=== PATIENT | male | born 1980 | race Caucasian/White ===

== ENCOUNTER 2019-08-01 02:55 | Emergency (ER) | payer MEDICAID, OTHER ==
[~2019-08-01] VITALS: Ht 177.8 cm; Wt 73.0 kg
[~2019-08-01 02:55] MED LIST: NON COMPLIANT
[2019-08-01] MEDS ORDERED: SODIUM CHLORIDE 0.9% 1,000 ML IV ONE (06:28)
[2019-08-01] MEDS ORDERED: MORPHINE SULFATE 4 MG/ML CPJ (NOT FOR IM USE) IV STA (06:28)
[2019-08-01] MEDS ORDERED: ONDANSETRON HCL 4MG/2ML INJ IV STA (06:28)
[2019-08-01 07:13] LABS: CHLORIDE 102 mEq/L (98-107)
[2019-08-01 07:26] LABS: BASOPHILS % 0.8 % (0.0-2.0); EOSINOPHILS % 0.6 % (0.0-5.0); HEMATOCRIT. 37.1 % (42.0-52.0); HEMOGLOBIN. 12.7 g/dL (14.0-18.0); MEAN CORPUSCULAR HEMOGLOBIN 31.5 pg (28.0-32.0); MEAN CORPUSCULAR VOLUME 91.8 fL (80.0-94.0); MEAN PLATELET VOLUME 8.8 fl (7.4-10.4); MONOCYTES % 5.6 % (2.0-8.0); PLATELET 200 x1000/uL (130-400); RED BLOOD CELL COUNT 4.04 mill/uL (4.7-6.1); RED CELL DISTRIBUTION WIDTH 15.8 % (11.6-14.6)
[2019-08-01 07:40] LABS: PROTHROMBIN TIME 10.4 sec (9.6-11.0)
[2019-08-01 08:20] VITALS: BP 125/79
== END 2019-08-01 08:40 | disposition home or self-care (01) ==
LOC: ER 02:55 → MERGE 02:55 → ER 08:40
DX: R10.13 Epigastric pain (principal); Z87.19 Personal history of other diseases of the digestive system; R03.0 Elevated blood-pressure reading, without diagnosis of hypertension
CPT/HCPCS: 36415; 74176; 80053; 83690; 85025; 85610; 96374; 96375; 99284; J2270; J2405; J7030; Z7610

== ENCOUNTER 2019-08-01 20:12 | Emergency (ER) | payer OTHER ==
[~2019-08-01] VITALS: Ht 177.8 cm; Wt 73.0 kg
[2019-08-01 21:22] LABS: BASOPHILS % 0.8 % (0.0-2.0); HEMATOCRIT. 39.4 % (42.0-52.0); HEMOGLOBIN. 13.5 g/dL (14.0-18.0); LYMPHOCYTES % 40.1 % (20.0-50.0); MEAN CORPUSCULAR HEMOGLOBIN 31.7 pg (28.0-32.0); MEAN CORPUSCULAR VOLUME 92.5 fL (80.0-94.0); MONOCYTES % 7.4 % (2.0-8.0); NEUTROPHILS % 50.7 % (40.0-76.0); PLATELET 163 x1000/uL (130-400); RED BLOOD CELL COUNT 4.26 mill/uL (4.7-6.1); RED CELL DISTRIBUTION WIDTH 16.2 % (11.6-14.6)
[2019-08-01 21:27] LABS: CHLORIDE 106 mEq/L (98-107)
[2019-08-01] MEDS: SODIUM CHLORIDE 0.9% 1,000 ML IV ONE (21:29)
[2019-08-01 21:40] LABS: ETHANOL BLOOD 435 mg/dL
[2019-08-02 05:09] LABS: *AMPHETAMINES SCREEN URINE NEGATIVE (NEGATIVE); CANNABINOID URINE SCREEN NEGATIVE (NEGATIVE)
[2019-08-02 05:10] LABS: *BARBITURATES SCREEN URINE NEGATIVE (NEGATIVE); *BENZODIAZEPINES SCREEN URINE NEGATIVE (NEGATIVE); *COCAINE SCREEN URINE NEGATIVE (NEGATIVE); METHADONE URINE SCREEN NEGATIVE (NEGATIVE); OPIATES URINE SCREEN NEGATIVE (NEGATIVE); PHENCYCLIDINE URINE SCREEN NEGATIVE (NEGATIVE)
[2019-08-02 06:15] VITALS: BP 130/94
== END 2019-08-02 06:25 | disposition home or self-care (01) ==
LOC: ER 20:12 → MERGE 20:12 → ER 08-02 06:25
DX: F10.129 Alcohol abuse with intoxication, unspecified (principal); R41.82 Altered mental status, unspecified; E11.9 Type 2 diabetes mellitus without complications; I10 Essential (primary) hypertension; Y90.9 Presence of alcohol in blood, level not specified
CPT/HCPCS: 36415; 80053; 80305; 80320; 82962; 84484; 85025; 93005; 96360; 96361; 99284; J7030; G0480

== ENCOUNTER 2024-12-13 18:33 | Emergency (ER) | payer MEDICAID, OTHER ==
[~2024-12-13] VITALS: Ht 167.6 cm; Wt 64.0 kg
[~2024-12-13 18:33] MED LIST changes: +FLUO-335 PO; +INSU100I13 SQ; +NAPR-1176 MT; +THIA100T72 PO
[2024-12-13 18:35] VITALS: O2SAT 99
[2024-12-13] MEDS: PANTOPRAZOLE SODIUM 40 MG/VIAL IV STA (19:18)
[2024-12-13] MEDS: METOCLOPRAMIDE HCL 10MG/2ML VIAL IV STA (19:18)
[2024-12-13] MEDS: MAGNESIUM/ALUMINUM HYDROXIDE/SIMETHICONE 30ML UDC PO STA (19:19)
[2024-12-13 19:22] VITALS: TEMP 37.4
[2024-12-13 21:31] LABS: BASOPHILS % 0.7 % (0.0-2.0); EOSINOPHILS % 3.3 % (0.0-5.0); HEMATOCRIT. 27.3 % (42.0-52.0); HEMOGLOBIN. 9.5 g/dL (14.0-18.0); LYMPHOCYTES % 25.9 % (20.0-50.0); MEAN CORPUSCULAR HEMOGLOBIN 31.8 pg (28.0-32.0); MEAN CORPUSCULAR HGB CONC 34.7 g/dL (31.0-37.0); MEAN CORPUSCULAR VOLUME 91.7 fL (80.0-94.0); MEAN PLATELET VOLUME 8.1 fl (7.4-10.4); MONOCYTES % 14.6 % (2.0-8.0); NEUTROPHILS % 55.5 % (40.0-76.0); PLATELET 111 x1000/uL (130-400); RED BLOOD CELL COUNT 2.98 mill/uL (4.7-6.1); WHITE BLOOD COUNT 4.8 x1000/uL (4.5-11.0)
[2024-12-13 21:38] LABS: CHLORIDE 108 mEq/L (98-107); POTASSIUM 4.5 mEq/L (3.5-5.1); SODIUM 135 mEq/L (136-145)
[2024-12-13 21:39] LABS: CARBON DIOXIDE 21 mEq/L (21-32)
[2024-12-13 21:40] LABS: CALCIUM 8.7 mg/dL (8.7-10.4)
[2024-12-13 21:41] LABS: PROTHROMBIN TIME 11.6 sec (9.6-11.0)
[2024-12-13 21:44] LABS: CREATININE 0.9 mg/dL (0.6-1.3); GLUCOSE 305 mg/dL (70-105)
[2024-12-13 21:45] LABS: UREA NITROGEN BLOOD 10 mg/dL (9-23)
[2024-12-13 21:49] LABS: TROPONIN I HIGH SENSITIVITY < 4 ng/L (3.0-53)
[2024-12-13 23:06] VITALS: BP 143/90; PULSE 80; RESP 12; O2SAT 97
== END 2024-12-13 23:13 | disposition home or self-care (01) ==
LOC: ER 18:33
DX: K29.20 Alcoholic gastritis without bleeding (principal); E11.9 Type 2 diabetes mellitus without complications; I10 Essential (primary) hypertension; Z59.00 Homelessness unspecified; Z79.899 Other long term (current) drug therapy; Z79.4 Long term (current) use of insulin; Z79.1 Long term (current) use of non-steroidal anti-inflammatories (NSAID)
CPT/HCPCS: 99285; 96374; 71045; 96375; 80048; 83690; 85025; 85610; 84484; 36415; 93005; J2765; J2470